=== PATIENT | female | born 1985 | race Caucasian/White ===

== ENCOUNTER 2018-02-13 07:19 | Emergency (ER) | payer OTHER ==
[~2018-02-13] VITALS: Ht 162.6 cm; Wt 63.0 kg
[2018-02-13 07:28] VITALS: BP 130/70
== END 2018-02-13 08:29 | disposition home or self-care (01) ==
LOC: ER 07:19
DX: J02.8 Acute pharyngitis due to other specified organisms (principal); Z88.0 Allergy status to penicillin
CPT/HCPCS: 87081; 87880; 99283

== ENCOUNTER 2018-05-09 20:14 | Emergency (ER) | payer OTHER ==
[~2018-05-09] VITALS: Ht 152.4 cm; Wt 70.5 kg
[2018-05-09 20:32] VITALS: BP 122/80
[2018-05-09] MEDS ORDERED: CYCL-1 PO (21:49)
[2018-05-09] MEDS ORDERED: cyclobenzaprine 10mg tablet PO ONE (21:50)
== END 2018-05-09 22:30 | disposition home or self-care (01) ==
LOC: ER 20:14
DX: M54.2 Cervicalgia (principal); M25.511 Pain in right shoulder; M25.512 Pain in left shoulder; M54.6 Pain in thoracic spine; Z88.0 Allergy status to penicillin; V89.2XXA Person injured in unspecified motor-vehicle accident, traffic, initial encounter; Y93.89 Activity, other specified; Y92.488 Other paved roadways as the place of occurrence of the external cause; Y99.8 Other external cause status
CPT/HCPCS: 99283

== ENCOUNTER 2018-06-25 11:42 | Outpatient (CLI) | payer OTHER ==
[~2018-06-25 11:42] MED LIST: CYCL-1 PO
== END 2018-06-25 23:59 | disposition home or self-care (01) ==
LOC: RAD 11:42
PROVIDERS: ATTEND Family Medicine
DX: M25.462 Effusion, left knee (principal)
CPT/HCPCS: 73564

== ENCOUNTER 2019-05-21 12:29 | Emergency (ER) | payer OTHER ==
[~2019-05-21] VITALS: Ht 152.4 cm; Wt 70.5 kg
[2019-05-21 12:44] VITALS: BP 118/76
[2019-05-21] MEDS ORDERED: CYCL-1 PO (13:04)
[2019-05-21] MEDS ORDERED: LIDOcaine 5% patch TP SCH (13:05)
== END 2019-05-21 13:17 | disposition home or self-care (01) ==
LOC: ER 12:29
DX: S29.012A Strain of muscle and tendon of back wall of thorax, initial encounter (principal); Z87.11 Personal history of peptic ulcer disease; Z87.891 Personal history of nicotine dependence; Z88.0 Allergy status to penicillin; X50.1XXA Overexertion from prolonged static or awkward postures, initial encounter; Y93.89 Activity, other specified; Y92.89 Other specified places as the place of occurrence of the external cause; Y99.9 Unspecified external cause status
CPT/HCPCS: 99283

== ENCOUNTER → 2024-12-28 | Emergency (ER) | payer OTHER ==
[~2024-12-28] VITALS: Ht 152.4 cm; Wt 82.3 kg
[~2024-12-28] MED LIST changes: +LIDO15SO9 PO
[2024-12-28 21:42] VITALS: BP 125/88; PULSE 78; RESP 18; TEMP 98.5; O2SAT 99
[2024-12-28] MEDS: ondansetron 4mg rapidly disintigrating tab PO ONE (21:46)
[2024-12-28] MEDS: LIDOcaine 2% Viscous 15ml cup MM ONE (21:46)
[2024-12-28] MEDS: mag hydrox/Alum hydrox/simeth 30ml oral suspension PO ONE (21:46)
[2024-12-28] MEDS: pantoprazole 40mg Tablet.DR PO ONE (21:46)
--- NOTE | 2024-12-29 01:52 | Physician Documentation ---
History of Present Illness ~ Chief Complaint: Abdominal Pain w/vomiting Stated Complaint: ABD PAIN Time Seen by MD: 21:36 Primary Medical Doctor: [facility] HPI Patient presents to the emergency room with epigastric pain. She attributes this to heartburn/gastritis. She is requesting to GI cocktail. She is taking Pepcid and proton pump inhibitor. No fevers Medication Reconciliation Allergies: Coded Allergies: Penicillins (Unverified Allergy, Unknown, 12/28/24) Scheduled Cyclobenzaprine* (Cyclobenzaprine*), 1 TAB PO TID Scheduled PRN Cyclobenzaprine* (Cyclobenzaprine*), 1 TABLET PO Q12H PRN PRN for muscle spasms Past Medical History Past Medical History: Peptic Ulcer Disease, UTI Past Surgical History: no surgical history Smoking Status: Never smoker Alcohol Use: Rarely Drug Use: none Lives In: Home Occupation: employed Review of Systems ROS All review of systems negative except as per HPI Physical Exam Vital Signs: Temperature: 98.5, Heart Rate: 78, Respiratory Rate: 18, BP: 125/88, Pulse Oximetry: 99, Weight: 82.270 Oxygen Flow Rate: 0 Physical Exam General: Patient is awake, alert, oriented x4 in no acute distress and well appearing.~ Head: Normocephalic and atraumatic. Eyes: Conjunctival normal. EOMI. PERRL. ENT: Mucous membranes moist. Neck: Supple, trachea is midline. Chest: Clear to auscultation bilaterally without rales, rhonchi, or wheezes. There is no accessory muscle use or retractions. Cardiac: RRR without murmurs, gallops, or rubs. Abd: Soft, nondistended, nontender, with normoactive bowel sounds. No guarding, rebound, or rigidity. Progress Results/Orders Results/Orders Completed Orders - RED VILLA MD Ondansetron Disint. Tablet (Zofran Odt T (12/28/24 21:40) Mag & Alum Hydrox/Simeth Susp (Maalox Or (12/28/24 21:40) Lidocaine 2% Viscous (Xylocaine 2% Visco (12/28/24 21:40) Famotidine Tablet (Pepcid Tablet) (12/28/24 21:40) Pantoprazole Tablet (Protonix) (12/28/24 21:40) Medications Received in ER Medications (Trade) Dose Ordered Sig/Diane Route PRN Reason Start Time Stop Time Status Last Admin Dose Admin (Zofran ODT tablet) 4 mg ONCE ONCE PO 12/28/24 21:40 12/28/24 21:41 DC 12/28/24 21:46 4 MG (Maalox oral suspension) 30 ml ONCE ONCE PO 12/28/24 21:40 12/28/24 21:41 DC 12/28/24 21:46 30 ML (Xylocaine 2% Viscous 15mL cup) 15 ml ONCE ONCE MM 12/28/24 21:40 12/28/24 21:41 DC 12/28/24 21:46 15 ML (Pepcid tablet) 20 mg ONCE ONCE PO 12/28/24 21:40 12/28/24 21:41 DC 12/28/24 21:46 20 MG (Protonix) 40 mg ONCE ONCE PO 12/28/24 21:40 12/28/24 21:41 DC 12/28/24 21:46 40 MG Vital Signs 12/28/24 21:42 Temp 98.5 Pulse 78 Resp 18 B/P (MAP) 125/88 Pulse Ox 99 O2 Flow Rate 0 Medical Decision Making Additional information obtaine: N/A Findings Patient presents to the emergency room with epigastric pain as per HPI. Differentials were vest. Given response to GI cocktail which was positive we will treat her for gastritis. Diff Dx GI Bleed:Consideration: Include: AE fistula, Angiodysplasia, Bleeding diathesis, Blood loss anemia, Carcinoma, Diverticulosis, Diverticulitis, Esopha geal varicies, Esophagitis, Gastritis, Gastroenteritis, Inflammatory BD, Kalani-Ayoub syndrome, Meckel's diverticulum, PUD, Other Diff Dx Pain:Considerations: Include: AAA, -Complete, - Incomplete, -Inevitable, -Missed, -Threatened, Abruptio placentae, Angina/MO, Aortic dissection, Appendicitis, Bowel obstruction, Cholan gitis, Cholecystitis, Cholelithasis, Constipation, Diverticular disease, Dysmenorrhea, Ectopic , Esophageal rupture, Esophagitis, Gastritis/PUD, Gastroenteritis, GI hemorrhage, Hernia, Hepatitis, Inflammatory BD, Ischemic bowel, Mass, Ovarian cyst/torsion, Pancreatitis, PID, Porphyria, Trauma, intraabdominal, Urinary obstruction, Urinary tract infection, Urolithiasis, Othe r Diff Dx N/V/D:Considerations: Include: Appendicitis, Bowel obstruction, Dehydration, DKA, Diarrhea - bacterial, Diarrhea - parasitic, Diarrhea - viral, Diverticulitis, Diverticulosis, Drug toxicity, Electrolyte imbalance, Food poiso belle, Gastroenteritis, GE reflux, GI bleed, Hepatitis, Hernia, Hypovolemia, Hypotension, Inflammatory BD, Impaction, Malnutrition, Pancreatitis, , PUD, Renal failure, Urolithiasis, Urinary obstruction, UTI, Other Diff Dx Rectal:Considerations: Include: Fissure, Fistula, Foreign body, Impaction, Perirectal abscess, Rectal prolapse, Subcutaneous abscess, Thrombosed hemorrhoid, Ulcer, UTI, Other Departure Disposition: HOME / SELF CARE / HOMELESS Impression: Primary Impression: Acute gastritis Condition: Improved Discharge Instructions: Gastritis, Adult Referrals: NO PRIMARY CARE PROVIDER (PCP) Prescriptions Lidocaine HCl (Lidocaine HCl Viscous) 2 % Solution 5 ML PO Q8H for mouth sore pain for 6 Days, #100 ML 0 Refills Prov: RED VILLA MD 12/29/24 Signature Scribe Signature: No scribe Attestation: The note accurately reflects work and decisions made by me.Red Villa MD 12/29/24 01:52 RED VILLA MD Dec 29, 2024 01:52
== END | disposition home or self-care (01) ==
LOC: ER 21:27
DX: K29.00 Acute gastritis without bleeding (principal); Z88.0 Allergy status to penicillin; Z87.440 Personal history of urinary (tract) infections; Z87.11 Personal history of peptic ulcer disease; Z79.899 Other long term (current) drug therapy
CPT/HCPCS: 99284